=== PATIENT | female | born 1975 | race Hispanic/Latino ===

== ENCOUNTER 2022-05-02 01:11 | Emergency (ER) | payer MEDICAID ==
[~2022-05-02] VITALS: Ht 157.5 cm; Wt 93.9 kg
[2022-05-02] MEDS ORDERED: CLIN-141 PO (01:16)
[2022-05-02] MEDS ORDERED: PRED50TA2 PO (01:16)
[2022-05-02 01:21] VITALS: BP 132/74
[2022-05-02] MEDS ORDERED: CEFTRIAXONE 1G VIAL ONE (01:27)
[2022-05-02] MEDS ORDERED: CEFTRIAXONE 1G VIAL IM ONE (01:30)
== END 2022-05-02 01:33 | disposition home or self-care (01) ==
LOC: EDH 01:11
DX: J02.9 Acute pharyngitis, unspecified (principal); E78.00 Pure hypercholesterolemia, unspecified; I10 Essential (primary) hypertension
CPT/HCPCS: 99283; 96372; J0696